=== PATIENT | male | born 1975 | race African-American/Black ===

== ENCOUNTER 2020-12-06 08:32 | Inpatient (IN) | payer OTHER, SELFPAY ==
[2020-12-06 09:14] LABS: #Lymphocytes 1.2 thou/uL (1.20-3.40); #Neutrophils 9.9 thou/uL (1.40-6.50); %Basophils 0.4 % (0.0-1.0); %Eosinophils 0.1 % (0.0-10.0); %Lymphocytes 10.1 % (21.0-51.0); %Monocytes 8.1 % (0.0-10.0); %Neutrophils 81.3 % (42.0-75.0); Hemoglobin 14.7 g/dL (14.0-18.0); Mean Corpuscular HGB CONC 33.3 g/dL (32.0-36.0); Mean Corpuscular Hemoglobin 31.6 pg (27.0-31.0); Mean Corpuscular Volume 94.9 fL (78.0-98.0); Mean Platelet Volume 7.8 fL (7.4-10.4); Platelet Count 243 thou/uL (130-400); RBC Distribution Width 12.3 % (11.5-14.5); Red Blood Cell (RBC) Count 4.65 mill/uL (4.70-6.10); White Blood Cell (WBC) Count 12.2 thou/uL (4.8-10.8)
[2020-12-06 09:21] LABS: Prothrombin Time 12.9 sec (12.0-14.7)
[2020-12-06 09:35] LABS: ALT (SGPT) 16 U/L (8-55); AST (SGOT) 30 U/L (5-34); Albumin 4.5 g/dL (3.5-5.0); Alkaline Phosphatase 81 U/L (40-110); Anion Gap 18 mmol/L (10-20); BUN (Urea Nitrogen) 8 mg/dL (8.9-20.6); Bilirubin, Total 0.5 mg/dL (0.2-1.2); Calc. Creatinine Clearance 0 mL/min (70-130); Carbon Dioxide 21 mmol/L (22-29); Chloride 106 mmol/L (98-107); Globulin 3.1 g/dL (2.4-3.5); Glucose 323 mg/dL (70-105); Potassium 4.2 mmol/L (3.5-5.1); Protein, Total 7.6 g/dL (6.0-8.3); Sodium 141 mmol/L (136-145)
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
--- NOTE | 2020-12-06 09:41 | RAD ---
EXAM: XR Pelvis AP STANDARD PROVIDED CLINICAL HISTORY: Right hip pain status post injury COMPARISON: None FINDINGS: There is a comminuted, displaced fracture involving the intertrochanteric/basicervical region of the right proximal femur. No additional fracture is evident. Hip joint spaces appear preserved. Alignment appears otherwise anatomic. IMPRESSION: Comminuted, displaced right proximal femoral fracture.
--- NOTE | 2020-12-06 09:41 | RAD ---
EXAM: XR Ankle Rt 2 View PROVIDED CLINICAL HISTORY: Pain FINDINGS: There is no evidence for fracture or other acute osseous abnormality. Alignment appears anatomic. Nikki nt spaces appear preserved. IMPRESSION: No evidence for an acute osseous abnormality. If there is persistent clinical concern, conservative m anagement and follow-up imaging advised.
--- NOTE | 2020-12-06 09:42 | RAD ---
EXAM: XR Knee Rt 2 View PROVIDED CLINICAL HISTORY: Pain status post injury COMPARISON: None FINDINGS: Nonstandard positioning limits evaluation. There is a nondisplaced fibular neck fracture. No addition al fracture is evident. IMPRESSION: As above.
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
[2020-12-06] MEDS ORDERED: Fentanyl 100 MCG/2 ML VIAL ONE ×2 (10:01→11:35)
[2020-12-06] MEDS ORDERED: Ondansetron PF 4 MG/2 ML Vial ONE (10:01)
[2020-12-06] MEDS ORDERED: Boostrix 0.5 ML (Tdap) VIAL ONE (10:01)
[2020-12-06] MEDS ORDERED: Famotidine/PF 20 mg/2ml Vial ONE (10:40)
[2020-12-06] MEDS ORDERED: SUGAMMADEX SODIUM 200 MG/2 ML VIAL ONE ×2 (10:40→10:47)
[2020-12-06] MEDS ORDERED: CEFAZOLIN 2 GM in Premix Bag 1 BAG IVPB SCH (11:00)
--- NOTE | 2020-12-06 11:35 | RAD ---
EXAM: XR Hip Rt 2-3 View PROVIDED CLINICAL HISTORY: Fracture COMPARISON: Examination earlier same date FINDINGS: Comminuted, displaced right femoral neck fracture. No additional fracture is evident. IMPRESSION: As above.
[2020-12-06 11:38] LABS: SARS-CoV-2 NAA Rapid Test Not Detected (NotDetected)
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
[2020-12-06] MEDS ORDERED: Morphine 2 MG/ML VIAL ONE (12:03)
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
[2020-12-06] MEDS ORDERED: Vancomycin 1.5 GRAM/300 ML BAG 1.5 GM in Premix Bag 1 BAG IVPB SCH (13:00)
[2020-12-06] MEDS ORDERED: Ondansetron ODT 4 MG TAB PO PRN (13:05)
[2020-12-06] MEDS ORDERED: Dextrose 5% in Water 1,000 ML IV PRN (13:05)
[2020-12-06] MEDS ORDERED: Dextrose 50% Abboject 50 ML SYRINGE SLOW IVP PRN (13:05)
[2020-12-06] MEDS ORDERED: traMADol HCl 50 MG TAB PO PRN ×2 (13:05)
[2020-12-06] MEDS ORDERED: Ondansetron PF 4 MG/2 ML Vial IVP PRN (13:05)
[2020-12-06 13:37] VITALS: BMI 24.7
[2020-12-06] MEDS: Sodium Chloride 0.9% 1,000 ML IV SCH ×2 (13:42→21:00)
[2020-12-06] MEDS: Morphine 2 MG/ML VIAL SLOW IVP PRN ×3 (13:42→21:01)
[2020-12-06] MEDS: Ibuprofen 600 MG TAB PO SCH ×2 (13:42→21:00)
[2020-12-06 15:12] LABS: Amphetamine Not Detected (NotDetected); Barbiturates Screen Not Detected (NotDetected); Benzodiazepine Screen Not Detected (NotDetected); Cocaine Metabolite Screen Not Detected (NotDetected); Medtox Control Line Valid? VALID (VALID); Medtox Reader # READER 4; Methadone Not Detected (NotDetected); Methamphetamine Not Detected (NotDetected); Opiate Screen Not Detected (NotDetected); Oxycodone Screen Not Detected (NotDetected); Phencyclidine (PCP) Not Detected (NotDetected); THC/Cannabinoid Screen Not Detected (NotDetected); Tricyclic Screen Not Detected (NotDetected)
[2020-12-06] MEDS: hydrALAZINE 20 MG/ML VIAL SLOW IVP PRN ×2 (16:06→21:02)
[2020-12-06] MEDS: Acetaminophen 500 MG TAB PO SCH (18:08)
[2020-12-06] MEDS: Insulin Regular 300 UNITS/3 ML VIAL SC PRN (18:09)
[2020-12-06] MEDS: Metoprolol Tartrate 25 MG TAB PO SCH (20:59)
[2020-12-06] MEDS: Simvastatin 10 MG TAB PO SCH (20:59)
[2020-12-06] MEDS: Famotidine 20 MG TAB PO SCH (20:59)
[2020-12-07] MEDS: Acetaminophen 500 MG TAB PO SCH ×5 (00:58→23:48)
[2020-12-07] MEDS: Sodium Chloride 0.9% 1,000 ML IV SCH ×2 (05:24→15:30)
[2020-12-07] MEDS: Ibuprofen 600 MG TAB PO SCH (05:25)
[2020-12-07] MEDS: Morphine 2 MG/ML VIAL SLOW IVP PRN ×2 (05:25→09:29)
[2020-12-07] MEDS: hydrALAZINE 20 MG/ML VIAL SLOW IVP PRN (05:26)
[2020-12-07 05:49] LABS: #Basophils 0.1 thou/uL (0.0-0.2); #Lymphocytes 1.7 thou/uL (1.20-3.40); #Monocytes 0.9 thou/uL (0.11-0.59); #Neutrophils 5.4 thou/uL (1.40-6.50); %Basophils 0.7 % (0.0-1.0); %Eosinophils 0.4 % (0.0-10.0); %Lymphocytes 21.1 % (21.0-51.0); %Neutrophils 66.8 % (42.0-75.0); Hemoglobin 12.5 g/dL (14.0-18.0); Mean Corpuscular HGB CONC 33.2 g/dL (32.0-36.0); Mean Corpuscular Hemoglobin 32.4 pg (27.0-31.0); Mean Corpuscular Volume 97.6 fL (78.0-98.0); Mean Platelet Volume 7.6 fL (7.4-10.4); Platelet Count 174 thou/uL (130-400); Red Blood Cell (RBC) Count 3.86 mill/uL (4.70-6.10); White Blood Cell (WBC) Count 8.1 thou/uL (4.8-10.8)
[2020-12-07 06:07] LABS: Phosphorus 2.1 mg/dL (2.3-4.7)
[2020-12-07 06:08] LABS: Anion Gap 11 mmol/L (10-20); BUN (Urea Nitrogen) 5 mg/dL (8.9-20.6); Calc. Creatinine Clearance 150 mL/min (70-130); Calcium 7.9 mg/dL (7.8-10.44); Carbon Dioxide 25 mmol/L (22-29); Chloride 106 mmol/L (98-107); Glucose 211 mg/dL (70-105); Magnesium 1.5 mg/dL (1.6-2.6); Potassium 3.9 mmol/L (3.5-5.1); Sodium 138 mmol/L (136-145)
[2020-12-07] MEDS ORDERED: Potassium Phosphate 30 MMOL in Sodium Chloride 0.9% 250 ML 250 ML IVPB SCH (07:45)
[2020-12-07] MEDS ORDERED: Magnesium Sulfate 4 GM in Sodium Chloride 0.9% 250 ML 250 ML IVPB SCH (07:45)
[2020-12-07] MEDS ORDERED: Potassium Phosphate 30 MMOL, Magnesium Sulfate 4 GM in Sodium Chloride 0.9% 250 ML 250 ML IVPB SCH (08:30)
[2020-12-07] MEDS ORDERED: FLU VACC QS2020-21(6MOS UP)/PF 60 MCG/0.5 ML SYRINGE IM ONE (09:00)
[2020-12-07] MEDS: Metoprolol Tartrate 25 MG TAB PO SCH ×3 (09:28→20:22)
[2020-12-07] MEDS: Lisinopril 2.5 MG TAB PO SCH (09:29)
[2020-12-07] MEDS: Polyethylene Glycol 3350 17 GM Packet PO SCH (09:35)
[2020-12-07] MEDS: Famotidine 20 MG TAB PO SCH ×2 (09:35→20:23)
[2020-12-07] MEDS: Senokot S 8.6-50 MG TAB PO SCH ×2 (09:35→20:22)
[2020-12-07] MEDS ORDERED: Tranexamic Acid 1,000 MG in Sodium Chloride 0.9% 250 ML 250 ML IVPB SCH (10:00)
[2020-12-07] MEDS ORDERED: Dexamethasone 20 MG/5 ML VIAL ONE (10:16)
[2020-12-07] MEDS ORDERED: Rocuronium Bromide 10 MG/ML (10ML VIAL) ONE (10:16)
[2020-12-07] MEDS ORDERED: PROPOFOL 200 MG/20 ML VIAL ONE (10:16)
[2020-12-07] MEDS ORDERED: Ketorolac Tromethamine 30 MG/ML VIAL ONE (10:16)
[2020-12-07] MEDS ORDERED: Ondansetron PF 4 MG/2 ML Vial ONE (10:16)
[2020-12-07] MEDS ORDERED: Lidocaine 1.5% w/Epi 1:200K 30 ML VIAL (Epid Use) ONE (10:18)
[2020-12-07] MEDS ORDERED: Metoprolol Tartrate 25 MG TAB PO SCH (10:45)
[2020-12-07] MEDS ORDERED: Amlodipine 10 MG TAB PO SCH (10:45)
[2020-12-07] MEDS ORDERED: Midazolam HCl 2 mg/2 ml Vial ONE (11:44)
[2020-12-07] MEDS ORDERED: Fentanyl 100 MCG/2 ML VIAL ONE ×3 (11:44→16:19)
[2020-12-07] MEDS ORDERED: Vancomycin 1.5 GRAM/300 ML BAG ONE (12:10)
[2020-12-07] MEDS ORDERED: Sodium Chloride 0.9% 100 ML ONE (12:11)
[2020-12-07] MEDS ORDERED: Tranexamic Acid 1,000 MG/10 ML VIAL ONE (12:11)
[2020-12-07] MEDS ORDERED: diphenhydrAMINE 50 MG/ML VIAL IVP PRN (12:45)
[2020-12-07] MEDS ORDERED: diphenhydrAMINE 25 MG CAP PO PRN ×2 (12:45→13:54)
[2020-12-07] MEDS ORDERED: Hydrocerin (Eucerin) Cream 120 gm Jar TOP PRN (12:45)
[2020-12-07] MEDS ORDERED: diphenhydrAMINE 50 MG/ML VIAL IM PRN (12:45)
[2020-12-07] MEDS ORDERED: Zolpidem Tartrate 5 MG TAB PO PRN ×2 (12:45→13:54)
[2020-12-07] MEDS ORDERED: Naloxone HCl 0.4 mg/ml Vial IVP PRN (12:45)
[2020-12-07] MEDS ORDERED: HYDROcodone/Acetaminophen 5/325 mg Tablet PO PRN ×2 (12:45)
[2020-12-07] MEDS ORDERED: Promethazine HCl 25 MG SUPP PR PRN (12:45)
[2020-12-07] MEDS ORDERED: Promethazine HCl 25 MG/ML VIAL IM PRN ×3 (12:45→16:04)
[2020-12-07] MEDS ORDERED: traMADol HCl 50 MG TAB PO PRN (12:45)
[2020-12-07] MEDS ORDERED: Naloxone HCl 0.4 mg/ml Vial IV PRN (12:45)
[2020-12-07] MEDS ORDERED: Ondansetron PF 4 MG/2 ML Vial IVP PRN ×2 (12:45→13:54)
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
[2020-12-07] MEDS ORDERED: Acetaminophen 325 MG TAB PO PRN ×2 (13:54→16:03)
[2020-12-07] MEDS ORDERED: HYDROcodone/Acetaminophen 10/325 mg Tablet PO PRN ×2 (13:54)
[2020-12-07] MEDS ORDERED: Fentanyl 100 MCG/2 ML VIAL SLOW IVP PRN ×2 (13:54)
[2020-12-07] MEDS ORDERED: Ropivacaine 0.5% HCl/PF (150 MG/30 ML VIAL) ONE (14:04)
[2020-12-07] MEDS ORDERED: Phenylephrine 10 MG/ML VIAL ONE (14:53)
[2020-12-07] MEDS ORDERED: Rocuronium Bromide 50 MG/5 ML VIAL ONE (15:10)
[2020-12-07] MEDS ORDERED: SUGAMMADEX SODIUM 200 MG/2 ML VIAL ONE (15:11)
[2020-12-07] MEDS ORDERED: Ondansetron HCl/PF 4 MG/2 ML Vial IVP PRN (16:04)
[2020-12-07] MEDS ORDERED: HYDROmorphone 2 MG/ML VIAL SLOW IVP PRN (16:04)
[2020-12-07] MEDS ORDERED: Promethazine HCl 25 MG/ML VIAL SLOW IVP PRN (16:04)
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
--- NOTE | 2020-12-07 17:06 | RAD ---
Exam: XR Hip Rt 2-3 View HISTORY: Postop total hip. COMPARISON: 12/06/2020 FINDINGS: There has been interval postsurgical changes with evidence of a right total hip prosthesis. No hardwa re complication is seen. There is no fracture or dislocation. Subcutaneous emphysema is seen about the right hip. IMPRESSION: Postoperative changes related to recent right total hip replacement.
[2020-12-07] MEDS: metFORMIN 500 MG TAB PO SCH (17:55)
[2020-12-07] MEDS: Ketorolac Tromethamine 30 MG/ML VIAL IVP SCH ×2 (17:56→23:48)
[2020-12-07] MEDS: Aspirin 81 mg Enteric Coated Tablet PO SCH (20:21)
[2020-12-07] MEDS: Ferrous Gluconate 324 MG TAB PO SCH (20:22)
[2020-12-07] MEDS: traMADol HCl 50 MG TAB PO PRN (20:22)
[2020-12-07] MEDS: Simvastatin 10 MG TAB PO SCH (20:23)
[2020-12-07] MEDS: Insulin Regular 300 UNITS/3 ML VIAL SC PRN (21:06)
[2020-12-07] MEDS: Cyclobenzaprine 10 MG TAB PO PRN (23:51)
[2020-12-08] MEDS: Sodium Chloride 0.9% 1,000 ML IV SCH (00:19)
[2020-12-08] MEDS: Acetaminophen 500 MG TAB PO SCH (05:49)
[2020-12-08] MEDS: Ketorolac Tromethamine 30 MG/ML VIAL IVP SCH ×3 (05:50→17:27)
[2020-12-08] MEDS: traMADol HCl 50 MG TAB PO PRN ×3 (05:50→17:28)
[2020-12-08] MEDS: Insulin Regular 300 UNITS/3 ML VIAL SC PRN ×3 (05:51→17:28)
[2020-12-08 06:00] LABS: Mean Corpuscular Hemoglobin 31.8 pg (27.0-31.0); Mean Corpuscular Volume 96.2 fL (78.0-98.0); Mean Platelet Volume 7.7 fL (7.4-10.4); Platelet Count 170 thou/uL (130-400); RBC Distribution Width 11.8 % (11.5-14.5); Red Blood Cell (RBC) Count 3.47 mill/uL (4.70-6.10); White Blood Cell (WBC) Count 11.2 thou/uL (4.8-10.8)
[2020-12-08] MEDS: Fentanyl 5 mcg/Bup 0.075% Cadd 100 ML EPIDURAL SCH ×2 (06:41→22:21)
[2020-12-08] MEDS: glyBURIDE 5 MG TAB PO SCH (06:41)
[2020-12-08] MEDS: Senokot S 8.6-50 MG TAB PO SCH ×3 (08:14→20:32)
[2020-12-08] MEDS: Lisinopril 2.5 MG TAB PO SCH (08:32)
[2020-12-08] MEDS: Polyethylene Glycol 3350 17 GM Packet PO SCH (08:32)
[2020-12-08] MEDS: metFORMIN 500 MG TAB PO SCH ×2 (08:33→17:28)
[2020-12-08] MEDS: Famotidine 20 MG TAB PO SCH ×2 (08:33→20:32)
[2020-12-08] MEDS: Multivitamin W/ Minerals 1 TAB PO SCH (08:33)
[2020-12-08] MEDS: Amlodipine 10 MG TAB PO SCH (08:33)
[2020-12-08] MEDS: Ferrous Gluconate 324 MG TAB PO SCH ×2 (08:33→20:33)
[2020-12-08] MEDS: Aspirin 81 mg Enteric Coated Tablet PO SCH ×2 (08:33→20:32)
[2020-12-08] MEDS: Folic Acid 1 MG TAB PO SCH (08:33)
[2020-12-08] MEDS: Metoprolol Tartrate 25 MG TAB PO SCH ×2 (08:33→20:35)
[2020-12-08 10:09] LABS: Hemoglobin A1c 10.7 % (4.0-6.0)
[2020-12-08] MEDS: Lisinopril 5 MG TAB PO SCH ×2 (10:16→20:33)
[2020-12-08] MEDS: Cyclobenzaprine 10 MG TAB PO PRN ×2 (11:17→20:32)
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
[2020-12-08 17:53] LABS: Bacteria/HPF None Seen HPF (None Seen); Bilirubin Negative (Negative); Blood, Urine 3+ (Negative); Clarity Turbid (Clear); Glucose, Urine (Dipstick) 150 mg/dL (Negative); Ketone, Urine Trace mg/dL (Negative); Leukocyte 25 Leu/uL (Negative); Nitrite Negative (Negative); Protein, Urine (Dipstick) 100 mg/dL (Neg-Trace); RBC/HPF Greater than 50 HPF (0-3); Specific Gravity, Urine 1.038 (1.002-1.036); Squamous Epithelial None Seen HPF (0-3)
[2020-12-08 17:57] LABS: Urine Culture Reflex Yes Yes
[2020-12-08] MEDS: Simvastatin 10 MG TAB PO SCH (20:35)
[2020-12-09] MEDS: Ketorolac Tromethamine 30 MG/ML VIAL IVP SCH ×3 (00:16→12:02)
[2020-12-09] MEDS: traMADol HCl 50 MG TAB PO PRN ×3 (00:16→17:55)
[2020-12-09 06:32] LABS: Mean Corpuscular HGB CONC 32.2 g/dL (32.0-36.0); Mean Corpuscular Hemoglobin 31.8 pg (27.0-31.0); Mean Corpuscular Volume 98.8 fL (78.0-98.0); Mean Platelet Volume 7.8 fL (7.4-10.4); Platelet Count 178 thou/uL (130-400); RBC Distribution Width 11.7 % (11.5-14.5); Red Blood Cell (RBC) Count 3.47 mill/uL (4.70-6.10); White Blood Cell (WBC) Count 9.2 thou/uL (4.8-10.8)
[2020-12-09] MEDS: Insulin Regular 300 UNITS/3 ML VIAL SC PRN ×3 (06:42→20:58)
[2020-12-09 06:54] LABS: Anion Gap 11 mmol/L (10-20); BUN (Urea Nitrogen) 7 mg/dL (8.9-20.6); Calc. Creatinine Clearance 142 mL/min (70-130); Calcium 8.1 mg/dL (7.8-10.44); Carbon Dioxide 25 mmol/L (22-29); Chloride 103 mmol/L (98-107); Glucose 201 mg/dL (70-105); Magnesium 1.9 mg/dL (1.6-2.6); Phosphorus 2.2 mg/dL (2.3-4.7); Potassium 3.9 mmol/L (3.5-5.1); Sodium 135 mmol/L (136-145)
[2020-12-09] MEDS: glyBURIDE 5 MG TAB PO SCH (08:08)
[2020-12-09] MEDS: Polyethylene Glycol 3350 17 GM Packet PO SCH (08:11)
[2020-12-09] MEDS: metFORMIN 500 MG TAB PO SCH ×2 (08:11→19:26)
[2020-12-09] MEDS: Metoprolol Tartrate 25 MG TAB PO SCH ×2 (08:12→20:56)
[2020-12-09] MEDS: Famotidine 20 MG TAB PO SCH (08:12)
[2020-12-09] MEDS: Multivitamin W/ Minerals 1 TAB PO SCH (08:12)
[2020-12-09] MEDS: Ferrous Gluconate 324 MG TAB PO SCH ×2 (08:12→20:53)
[2020-12-09] MEDS: Aspirin 81 mg Enteric Coated Tablet PO SCH ×2 (08:12→20:54)
[2020-12-09] MEDS: Lisinopril 5 MG TAB PO SCH ×2 (08:12→20:56)
[2020-12-09] MEDS: Senokot S 8.6-50 MG TAB PO SCH ×2 (08:12→20:53)
[2020-12-09] MEDS: Amlodipine 10 MG TAB PO SCH (08:13)
[2020-12-09] MEDS: Folic Acid 1 MG TAB PO SCH (08:13)
[2020-12-09] MEDS ORDERED: Insulin Regular 300 UNITS/3 ML VIAL SC PRN (13:59)
[2020-12-09] MEDS: Gabapentin 300 MG CAP PO SCH ×2 (14:42→20:53)
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
[2020-12-09] MEDS: Fentanyl 5 mcg/Bup 0.075% Cadd 100 ML EPIDURAL SCH (16:02)
[2020-12-09] MEDS: Cyclobenzaprine 10 MG TAB PO PRN (17:55)
[2020-12-09] MEDS: Simvastatin 10 MG TAB PO SCH (20:53)
[2020-12-09] MEDS ORDERED: (Dulaglutide [Trulicity] 0.75 MG/0.5 ML Pen.Injctr) SC SCH (21:00)
[2020-12-10] MEDS: traMADol HCl 50 MG TAB PO PRN (06:05)
[2020-12-10] MEDS: Cyclobenzaprine 10 MG TAB PO PRN (06:05)
[2020-12-10] MEDS: Insulin Regular 300 UNITS/3 ML VIAL SC PRN (06:06)
[2020-12-10 06:16] LABS: Hemoglobin 10.6 g/dL (14.0-18.0); Mean Corpuscular Hemoglobin 31.8 pg (27.0-31.0); Mean Corpuscular Volume 99.4 fL (78.0-98.0); Mean Platelet Volume 7.5 fL (7.4-10.4); Platelet Count 194 thou/uL (130-400); RBC Distribution Width 11.6 % (11.5-14.5); Red Blood Cell (RBC) Count 3.33 mill/uL (4.70-6.10); White Blood Cell (WBC) Count 8.8 thou/uL (4.8-10.8)
[2020-12-10] MEDS: glyBURIDE 5 MG TAB PO SCH (06:52)
[2020-12-10] MEDS: Gabapentin 300 MG CAP PO SCH (08:00)
[2020-12-10] MEDS: Aspirin 81 mg Enteric Coated Tablet PO SCH (08:00)
[2020-12-10] MEDS: Amlodipine 10 MG TAB PO SCH (08:01)
[2020-12-10] MEDS: Folic Acid 1 MG TAB PO SCH (08:02)
[2020-12-10] MEDS: Lisinopril 5 MG TAB PO SCH (08:02)
[2020-12-10] MEDS: Multivitamin W/ Minerals 1 TAB PO SCH (08:02)
[2020-12-10] MEDS: Senokot S 8.6-50 MG TAB PO SCH (08:02)
[2020-12-10] MEDS: Metoprolol Tartrate 25 MG TAB PO SCH (08:02)
[2020-12-10] MEDS: metFORMIN 500 MG TAB PO SCH (08:02)
[2020-12-10] MEDS: Ferrous Gluconate 324 MG TAB PO SCH (08:03)
[2020-12-10] MEDS: Polyethylene Glycol 3350 17 GM Packet PO SCH (08:03)
[2020-12-10 15:43] VITALS: BP 158/101; TEMP 97.4
[2020-12-10] MEDS ORDERED: Lisinopril 20 MG TAB PO SCH (21:00)
== END 2020-12-10 15:48 | disposition home or self-care (01) | DRG 522 ==
LOC: ERS 08:32 → SURG B 10:21
PROVIDERS: ADMIT Surgery; ATTEND Surgery
PROC: 0SR904A Replacement of Right Hip Joint with Ceramic on Polyethylene Synthetic Substitute, Uncemented, Open Approach (ICD-10-PCS; principal; 2020-12-07)
DX: S72.091A Other fracture of head and neck of right femur, initial encounter for closed fracture (principal); R65.10 Systemic inflammatory response syndrome (SIRS) of non-infectious origin without acute organ dysfunction; F10.239 Alcohol dependence with withdrawal, unspecified; S82.491A Other fracture of shaft of right fibula, initial encounter for closed fracture; E11.65 Type 2 diabetes mellitus with hyperglycemia; K59.09 Other constipation; Z20.822 Contact with and (suspected) exposure to COVID-19; F17.200 Nicotine dependence, unspecified, uncomplicated; I10 Essential (primary) hypertension; V28.4XXA Motorcycle driver injured in noncollision transport accident in traffic accident, initial encounter; Z88.1 Allergy status to other antibiotic agents; Z91.19 Patient's noncompliance with other medical treatment and regimen
CPT/HCPCS: 0240U; 36415; 36416; 71045; 72170; 80048; 80053; 80306; 81001; 83036; 83735; 84100; 85025; 85027; 85610; 85730; 87086; 90471; 90715; 93005; 96374; 96375; J0360; J0690; J1100; J1815; J1885; J2001; J2250; J2270; J2370; J2405; J2704; J2795; J3010; J3370; J3475; J3490; J7050; S0028